=== PATIENT | male | born 1995 | race Caucasian/White ===

== ENCOUNTER 2019-01-27 13:48 | Emergency (ER) | payer OTHER ==
[2019-01-27] MEDS: HYDROCODONE/APAP (5/325) TAB PO (17:06)
== END 2019-01-27 18:40 | disposition home or self-care (01) ==
LOC: FTE 13:48
DX: S02.2XXA Fracture of nasal bones, initial encounter for closed fracture (principal); Y04.8XXA Assault by other bodily force, initial encounter
CPT/HCPCS: 70450; 70486; 72125; 99284-25